=== PATIENT | female | born 1955 ===

== ENCOUNTER → 2017-04-08 | Emergency (ER) | payer OTHER ==
[~2017-04-08] VITALS: Ht 157.5 cm; Wt 79.4 kg
[~2017-04-08] MED LIST: CLONAZEPAM0.5 MG; SEROPHENE50 MG; TRAMADOL HCL50 MG; ULTRACET PO; VERAPAMIL ER240 MG
== END | disposition home or self-care (01) ==
LOC: ER 16:40
DX: R10.32 Left lower quadrant pain (principal); N20.0 Calculus of kidney